=== PATIENT | female | born 1985 | race Caucasian/White ===

== ENCOUNTER → 2016-09-08 | Outpatient (CLI) | payer OTHER ==
--- NOTE | 2016-09-08 16:50 | US ---
EXAMINATION TYPE: US OB <= 14 wk fetus DATE OF EXAM: 09/08/2016 2:49 PM COMPARISON: NONE CLINICAL HISTORY: Z36 CONFIRM DATES. Positive beta-hCG test with pain EXAM PERFORMED: Transabdominal (TA) pelvic ultrasound. EXAM MEASUREMENTS: GESTATIONAL AGE / DATING Physician Established: not established Dates by LMP: (14 weeks/2 days) EDC: 03/07/2017 Dates by First Scan: today Dates by Current Scan for: (12 weeks/2 days) EDC: 03/21/2017 MATERNAL ANATOMY Uterus: 16.5 x 9.4 x 8.5cm Right Ovary: 3.5 x 1.9 x 2.0cm Left Ovary: 2.9 x 1.9 x 2.7cm GESTATION / SURVEY CRL: 5.7cm (12 weeks/2 days) Yolk Sac (normal less than 6mm): 4.0mm Heart Rate: 161 bpm Rhythm: Normal Nuchal Translucency 10-14wks (normal less than 3mm): 1.0mm Date of LMP: 05/31/2016 Beta HcG (if available): NA TECHNOLOGIST IMPRESSION: single, live IUP, 12weeks 2 days; EDC: 03/21/2017; HR 161bpm Single live intrauterine gestation is seen a gestational sac, yolk sac, pole are identified. No free fluid is seen in pelvic cul-de-sac. Both ovaries are identified. No suspicious solid or cystic extraovarian adnexal masses are seen. IMPRESSION: Single live intrauterine gestation is confirmed, mean crown-rump length is 5.7 cm corresponding to a 12 week 2 day-old fetus.
== END | disposition home or self-care (01) ==
LOC: RADUSWWP 14:12
PROVIDERS: ATTEND Obstetrics & Gynecology
DX: Z36 Encounter for antenatal screening of mother (principal); Z3A.12 12 weeks gestation of pregnancy
CPT/HCPCS: 76801; 76813

== ENCOUNTER → 2016-10-29 | Outpatient (CLI) | payer OTHER ==
--- NOTE | 2016-10-29 13:14 | US ---
EXAMINATION TYPE: US OB anatomy transabd DATE OF EXAM: 10/29/2016 12:34 PM COMPARISON: NONE HISTORY: Large for Dates O36.62 TECHNIQUE: Transabdominal (TA) EXAM MEASUREMENTS: GESTATIONAL AGE / DATING Physician Established: (20 weeks/6 days) EDC: 03/12/2017 Dates by LMP: (21 weeks/4 days) EDC: 03/07/2017 Dates by First Scan: (weeks/19 days) 5 EDC:03/21/2017 Dates by Current Scan for: (19 weeks/3 days) EDC: 03/22/2017 SURVEY IUP: Single PLACENTA: Anterior PREVIA: No previa ROBERT: 12.9 cm Normal CERVICAL LENGTH (transabdominal: norm > 3.0cm): 3.1 cm BIOMETRY PRESENTATION: Variable LIE: Oblique BPD: 4.4 cm 19 weeks / 3 days HC: 17.1 cm 19 weeks / 5 days AC: 14.4 cm 19 weeks / 5 days FL: 3.1 cm 19 weeks / 5 days ESTIMATED WEIGHT IN GRAMS: 307 grams ESTIMATED WEIGHT IN LBS/OZS: 0 lbs. 11 oz. WEIGHT PERCENTAGE BASED ON ESTABLISHED DATE: 5 % please note establlished date vs first sacn HC/AC: 1.2 FL/AC: 21 HEART RATE: 164 bpm RHYTHM: Normal ANATOMY SEEN (within normal limits): * Lateral Vent (< 1 cm) 0.7 cm * Cisterna Magna (< 1.1 cm) 0.3 cm * Nuchal Fold (< 0.6 cm) cm * Cerebellum (varies with age) 1.9 cm Choroid Plexus (bilateral) Midline Falx Cavus Septi Pellucidi Four Chamber Heart Outflow tracts: LVOT/RVOT Stomach Situs Nose / Lips Diaphragm Kidneys (bilateral) Bladder Cord Insert Three Vessel Cord Longitudinal Spine Transverse Spine Arms (bilateral) Legs (bilateral) IMPRESSION: growth congruent with Gestational age as per first scan.
== END | disposition home or self-care (01) ==
LOC: RADUSWWP 10:10
PROVIDERS: ATTEND Obstetrics & Gynecology
DX: O36.62X0 Maternal care for excessive fetal growth, second trimester, not applicable or unspecified (principal); O26.812 Pregnancy related exhaustion and fatigue, second trimester; Z3A.19 19 weeks gestation of pregnancy
CPT/HCPCS: 76811

== ENCOUNTER → 2016-10-30 | Outpatient (CLI) | payer OTHER ==
[2016-10-30 10:56] LABS: CH 29.4; CHCM 33.5; HCT 38.7 % (34.0-46.0); HDW 2.48; HGB 13.3 gm/dL (11.4-16.0); MCH 30.3 pg (25.0-35.0); MCHC 34.3 g/dL (31.0-37.0); MCV 88.3 fL (80.0-100.0); Mean Platelet Volume 8.1; RBC 4.38 m/uL (3.80-5.40); WBC 9.3 k/uL (3.8-10.6)
[2016-10-30 11:04] LABS: Glucose 80 mg/dL (74-99); Non-African American GFR(MDRD) >60 (>60 ml/min/1.73 sqM)
[2016-10-30 11:35] LABS: Hepatitis B Surface Ag Index 0.08
[2016-10-31 07:42] LABS: HIV-1/HIV-2 Ab Screen NONREAC (NON REAC)
== END ==
LOC: LABWHC1 10:12
PROVIDERS: ATTEND Obstetrics & Gynecology
DX: O26.812 Pregnancy related exhaustion and fatigue, second trimester (principal); Z3A.00 Weeks of gestation of pregnancy not specified
CPT/HCPCS: 36415; 82565; 82947; 85027; 86762; 86780; 86850; 86900; 86901; 87340; 87389

== ENCOUNTER → 2017-01-01 | Outpatient (CLI) | payer OTHER ==
[2017-01-01 12:46] LABS: CH 29.3; CHCM 32.2; HCT 35.7 % (34.0-46.0); HGB 11.7 gm/dL (11.4-16.0); MCHC 32.8 g/dL (31.0-37.0); MCV 91.4 fL (80.0-100.0); Mean Platelet Volume 7.3; RBC 3.91 m/uL (3.80-5.40); RDW 13.2 % (11.5-15.5); WBC 11.3 k/uL (3.8-10.6)
== END | disposition home or self-care (01) ==
LOC: LABWHC1 11:22
PROVIDERS: ATTEND Obstetrics & Gynecology
DX: Z34.82 Encounter for supervision of other normal pregnancy, second trimester (principal)
CPT/HCPCS: 36415; 82950; 85027

== ENCOUNTER 2017-01-19 11:53 | Outpatient (CLI) | payer OTHER ==
[2017-01-19 13:56] VITALS: BP 122/79; PULSE 98; RESP 20; TEMP 97.8
== END 2017-01-19 12:53 | disposition home or self-care (01) ==
LOC: FBPOP 11:53
PROVIDERS: ATTEND Obstetrics & Gynecology
DX: O26.93 Pregnancy related conditions, unspecified, third trimester (principal); Z3A.31 31 weeks gestation of pregnancy
CPT/HCPCS: 59025; 99213

== ENCOUNTER 2017-03-16 07:33 | Inpatient (IN) | payer OTHER ==
[2017-03-16] MEDS ORDERED: CARBOPROST TROMETHAMINE 250 MCG/ML 1 ML AMP IM PRN (07:43)
[2017-03-16] MEDS ORDERED: TERBUTALINE 1 MG/ML VIAL SQ PRN (07:43)
[2017-03-16] MEDS ORDERED: OXYTOCIN 10 UNIT/ML 1 ML VIAL IM PRN (07:43)
[2017-03-16] MEDS ORDERED: LIDOCAINE 1% (PF) 10 MG/ML (30 ML SDV) SQ PRN (07:43)
[2017-03-16] MEDS ORDERED: AMPICILLIN 2,000 MG in SODIUM CHLORIDE 0.9% 100 ML IVPB STA (07:43)
[2017-03-16] MEDS ORDERED: METHYLERGONOVINE 0.2 MG/ML 1 ML AMP IM PRN (07:43)
[2017-03-16 08:14] LABS: Basophils % (A) 0 %; CH 28.1; CHCM 32.6; Eosinophils # (A) 0.1 k/uL (0-0.7); Eosinophils % (A) 1 %; HCT 40.5 % (34.0-46.0); HDW 3.16; HGB 13.6 gm/dL (11.4-16.0); Luc # (Auto) 0.31; Luc % (Auto) 4; Lymphocytes # (A) 2.2 k/uL (1.0-4.8); Lymphocytes % (A) 25 %; MCHC 33.5 g/dL (31.0-37.0); MCV 86.5 fL (80.0-100.0); Monocytes # (A) 0.6 k/uL (0-1.0); Monocytes % (A) 7 %; Neutrophils # (A) 5.6 k/uL (1.3-7.7); Neutrophils % (A) 63 %; RBC 4.68 m/uL (3.80-5.40); RDW 14.5 % (11.5-15.5); WBC 8.8 k/uL (3.8-10.6); WBC (Perox) 8.95
[2017-03-16 08:17] LABS: Glucose,Whole Blood 93 mg/dL (75-99)
[2017-03-16] MEDS: LACTATED RINGERS 1,000 ML IV SCH ×2 (08:28→22:04)
[2017-03-16] MEDS ORDERED: diphenhydrAMINE 50 MG/ML 1 ML VIAL IVP PRN ×2 (08:52)
[2017-03-16] MEDS ORDERED: BENZOCAINE/MENTHOL SPRAY 1 GM/SPRAY AEROSOL TOPICAL PRN (08:52)
[2017-03-16] MEDS ORDERED: diphenhydrAMINE 25 MG CAP PO PRN (08:52)
[2017-03-16] MEDS ORDERED: SIMETHICONE 80 MG CHEWABLE PO PRN (08:52)
[2017-03-16] MEDS ORDERED: diphenhydrAMINE 50 MG CAP PO PRN (08:52)
[2017-03-16] MEDS ORDERED: HYDROCORTISONE 2.5% RECTAL CREAM 30 GM TUBE RECTAL PRN (08:52)
[2017-03-16] MEDS ORDERED: ACETAMINOPHEN TAB 325 MG TAB PO PRN (08:52)
[2017-03-16] MEDS ORDERED: LANOLIN CREAM 5 GM TUBE TOPICAL PRN (08:52)
[2017-03-16] MEDS ORDERED: WITCH HAZEL 1 EACH MED..PAD TOPICAL PRN (08:52)
[2017-03-16] MEDS ORDERED: ZOLPIDEM 5 MG TAB PO PRN (08:52)
[2017-03-16] MEDS: IBUPROFEN 600 MG TAB PO PRN ×3 (09:05→22:49)
[2017-03-16] MEDS ORDERED: OXYTOCIN 20 UNITS/1000 ML NS 1,000 ML IV SCH (11:15)
[2017-03-16 11:55] LABS: Hemoglobin A1C 5.3 % (4.2-6.1)
--- NOTE | 2017-03-16 17:09 | P.HPOB ---
History of Present Illness H&P Date: 03/16/17 Chief Complaint: Uterine at term: Active labor Yamilka is a 31-year-old at 39 weeks gestation who arrives dilated to 9/2 cm. Her course however has been dictated by gestational diabetes mellitus a 1. and she is actually feeling well at this time. Her group B strep is positive but there is no opportunity to get antibodies prior to her delivery. Artificial rupture membranes was performed with her completely dilated and -1 station. Clear fluid is noted. Pertinent labs do include O+ blood type, rubella immune, hepatitis B surface antigen was negative. On physical exam vital signs are stable and afebrile. Heart regular, lungs clear, extremities without pain. Osteopathic exam is unremarkable. Assessment intrauterine at term. Plan expect spontaneous vaginal delivery. Should be noted the heart tones are in the 130s and 1 to 140s and appear reactive at this time. Past Medical History History of Any Multi-Drug Resistant Organisms: None Reported Smoking Status: Former smoker Medications and Allergies Home Medications Medication Instructions Recorded Confirmed Type Pnv,Calcium 72/Iron/Folic Acid 1 tab PO DAILY 03/16/17 03/16/17 History [ Plus Tablet] Allergies Allergy/AdvReac Type Severity Reaction Status Date / Time No Known Allergies Allergy Verified 03/16/17 07:36 Exam Osteopathic Statement: *. No significant issues noted on an osteopathic structural exam other than those noted in the History and Physical/Consult. - Vital Signs Vital signs: Vital Signs Temp Pulse Resp BP 03/16/17 12:00 98.2 F 71 20 120/83 03/16/17 10:47 98.0 F 72 16 142/85 03/16/17 10:17 78 16 130/74 03/16/17 09:47 72 16 127/58 03/16/17 09:32 98.0 F 73 16 135/79 03/16/17 09:17 87 16 115/67 03/16/17 08:10 96.6 F L 78 18 130/90 Intake and Output 03/16/17 03/16/17 03/16/17 06:59 14:59 22:59 Other: # Voids 1 Weight 71.668 kg Patient Weight 03/17/17 06:59 Weight 71.668 kg Results Result Diagrams: 03/16/17 07:54
--- NOTE | 2017-03-16 17:10 | P.PROBDLV ---
Vaginal Delivery Note - . Vaginal Delivery Note: Patient progressed complete and pushed with spontaneous vaginal delivery of a viable female over a secondary midline laceration. Falling deliver the head anterior posterior shoulders were delivered with gentle downward and upward traction followed by the remainder the baby. Mouth nares were then bulb suctioned and baby was placed on mother's abdomen where the umbilical cord was clamped cut usual fashion. Nursery personnel was then present to assume care. Placenta was then delivered intact. Pitocin was added to the IV. Lidocaine was then used for analgesia and repair was affected of the second degree laceration in usual fashion. Mother and baby are stable following delivery. scores were 9 and 10 at one and 5 minutes respectively and the weight was 7 lbs. 3 oz.
[2017-03-16] MEDS: SENNOSIDES-DOCUSATE SODIUM 1 EACH TAB PO SCH (19:57)
[2017-03-16] MEDS: AMPICILLIN 1,000 MG in SODIUM CHLORIDE 0.9% 50 ML IVPB SCH ×2 (22:03→22:04)
--- NOTE | 2017-03-17 08:44 | P.PNOBGVD ---
Subjective - Subjective Principal diagnosis: PPD1 Interval history: doing well. voices no c/o all questions answered Patient reports: Reports appetite normal, Reports voiding normally, Reports pain well controlled, Reports ambulating normally : in NICU Objective - Latest Vital Signs Latest vital signs: Vital Signs Temp Pulse Resp BP 03/17/17 00:00 97.8 F 69 16 126/79 03/16/17 20:00 97.6 F 75 16 124/80 03/16/17 16:00 98.3 F 132 H 20 112/77 03/16/17 12:00 98.2 F 71 20 120/83 03/16/17 10:47 98.0 F 72 16 142/85 03/16/17 10:17 78 16 130/74 03/16/17 09:47 72 16 127/58 03/16/17 09:32 98.0 F 73 16 135/79 03/16/17 09:17 87 16 115/67 Intake and Output 03/16/17 03/17/17 03/17/17 22:59 06:59 14:59 Intake Total 380 600 Balance 380 600 Intake: Oral 380 600 Other: # Voids 1 2 2 - Exam Lungs: bilateral: normal Chest: Normal S1, Normal S2 Extremities: Present: normal Abdomen: Present: normal appearance, soft Uterus: Present: normal, firm
[2017-03-17] MEDS: SENNOSIDES-DOCUSATE SODIUM 1 EACH TAB PO SCH ×2 (08:51→23:09)
[2017-03-17 09:16] LABS: Basophils % (A) 0 %; CH 28.7; CHCM 32.8; Eosinophils # (A) 0.1 k/uL (0-0.7); Eosinophils % (A) 1 %; HCT 37.3 % (34.0-46.0); HDW 3.04; Luc # (Auto) 0.14; Luc % (Auto) 1; Lymphocytes # (A) 1.7 k/uL (1.0-4.8); Lymphocytes % (A) 17 %; MCH 28.4 pg (25.0-35.0); MCHC 32.2 g/dL (31.0-37.0); Mean Platelet Volume 9.6; Monocytes # (A) 0.4 k/uL (0-1.0); Monocytes % (A) 4 %; Neutrophils # (A) 7.7 k/uL (1.3-7.7); Neutrophils % (A) 77 %; RBC 4.24 m/uL (3.80-5.40); RDW 15.2 % (11.5-15.5); WBC (Perox) 10.85
[2017-03-17] MEDS: IBUPROFEN 600 MG TAB PO PRN ×2 (16:42→23:09)
--- NOTE | 2017-03-18 08:36 | P.DS ---
Providers Date of admission: 03/16/17 07:43 Expected date of discharge: 03/18/17 Attending physician: Amanda Faith Primary care physician: Stated None Hospital Course: Care is doing very well day 2. She is ambulating, voiding, and she is tolerating her diet. She voices no points. Vital signs are stable and afebrile. Heart regular, lungs clear, extremities without pain. Assessment day 2. Plan discharged home follow up with Dr. Faith in 6 weeks. Prescription for Motrin has been provided. All the questions are answered for this patient at this time she is stable for discharge at this time. Patient Condition at Discharge: Good Plan - Discharge Summary New Discharge Prescriptions: New Ibuprofen [Motrin] 600 mg PO Q6HR PRN #30 tab PRN Reason: Pain No Action Pnv,Calcium 72/Iron/Folic Acid [ Plus Tablet] 1 tab PO DAILY Discharge Medication List Pnv,Calcium 72/Iron/Folic Acid [ Plus Tablet] 1 tab PO DAILY 03/16/17 [ History] Ibuprofen [Motrin] 600 mg PO Q6HR PRN #30 tab 03/18/17 [Rx] Follow up Appointment(s)/Referral(s): Amanda Faith DO [Doctor of Osteopathic Medicine] - 6 Weeks Activity/Diet/Wound Care/Special Instructions: Be lifting, limit stairs and driving, and pelvic rest. If any high temperatures , heavy bleeding, or severe pain call my office Discharge Disposition: HOME SELF-CARE
[2017-03-18] MEDS: SENNOSIDES-DOCUSATE SODIUM 1 EACH TAB PO SCH (08:37)
[2017-03-18 09:03] VITALS: BP 113/75; PULSE 72; RESP 14; TEMP 97.6
[2017-03-18] MEDS: IBUPROFEN 600 MG TAB PO PRN (14:23)
== END 2017-03-18 15:30 | disposition home or self-care (01) | DRG 775 ==
LOC: FBPOP 07:33 → 4FBP 07:43
PROVIDERS: ADMIT Obstetrics & Gynecology; ATTEND Obstetrics & Gynecology
PROC: 10E0XZZ Delivery of Products of Conception, External Approach (ICD-10-PCS; principal; 2017-03-16)
PROC: 0KQM0ZZ Repair Perineum Muscle, Open Approach (ICD-10-PCS; 2017-03-16)
DX: O24.429 Gestational diabetes mellitus in childbirth, unspecified control (principal); O99.824 Streptococcus B carrier state complicating childbirth; O70.1 Second degree perineal laceration during delivery; Z37.0 Single live birth; Z3A.39 39 weeks gestation of pregnancy; Z87.891 Personal history of nicotine dependence
CPT/HCPCS: 59025; 83036; 85025; 88307; 99213